=== PATIENT | female | born 1955 | race Caucasian/White ===

== ENCOUNTER 2017-10-07 14:30 | Inpatient (IN) | payer OTHER ==
[~2017-10-07] VITALS: Ht 162.6 cm; Wt 135.6 kg
[2017-10-07 14:45] VITALS: BP 135/58
[2017-10-07 15:03] LABS: APPEARANCE,URINE Clear (CLEAR); BILIRUBIN,URINE Negative (NEGATIVE); COLOR,URINE Yellow (YELLOW); GLUCOSE, URINE (UA) Negative (NEGATIVE); KETONES,URINE Negative (NEGATIVE); LEUKOCYTE ESTERASE ,URINE Negative (NEGATIVE); NITRATE,URINE Negative (NEGATIVE); OCCULT BLOOD,URINE Negative (NEGATIVE); PH,URINE 5.5 (5.0-8.0); PROTEIN,URINE Negative (NEGATIVE); UROBILINOGEN,URINE 0.2 mg/dL (0.2-1.0)
[2017-10-07] MEDS ORDERED: METF500T6 PO (15:49)
[2017-10-07] MEDS ORDERED: VENL150T3 PO (15:49)
[2017-10-07] MEDS ORDERED: ASPI-1026 PO (15:49)
[2017-10-07] MEDS ORDERED: ATEN25TA PO (15:49)
[2017-10-07] MEDS ORDERED: OMEP40CA37 PO (15:49)
[2017-10-08] VITALS (24 sets, daily range): BP systolic 102–135; BP diastolic 54–74
[2017-10-08] MEDS ORDERED: CEFAZOLIN 3GM /D5W 100ML 100 ML IV SCH (06:00)
[2017-10-08] MEDS ORDERED: SODIUM CHLORIDE 0.9% 1000ML 1,000 ML IV ONE (07:15)
[2017-10-08] MEDS ORDERED: CEFAZOLIN SODIUM 1 GM VIAL ONE (07:27)
[2017-10-08] MEDS ORDERED: BUPIVACAINE/PF 0.25% 30ML VIAL IJ ONE (07:27)
[2017-10-08] MEDS ORDERED: EPINEPHRINE 1 MG/ML AMPULE ONE (07:27)
[2017-10-08] MEDS: CEFAZOLIN SODIUM 1 GM VIAL ONE ×2 (07:31→09:00)
[2017-10-08] MEDS ORDERED: ONDANSETRON HCL MDV 20ML 2 MG/ML VIAL ONE (07:44)
[2017-10-08] MEDS ORDERED: MIDAZOLAM HCL 1 MG/ML 2ML VIAL ONE (07:45)
[2017-10-08] MEDS ORDERED: SUCCINYLCHOLINE CHLORIDE 20 MG/ML 10 ML VIAL ONE (07:45)
[2017-10-08] MEDS ORDERED: LIDOCAINE PF 2% 5ML ABBOJECT ONE (07:45)
[2017-10-08] MEDS ORDERED: FENTANYL CITRATE PF 50 MCG/1 ML 2ML VIAL ONE ×2 (07:45→10:41)
[2017-10-08] MEDS ORDERED: PROPOFOL 10 MG/ML 20ML VIAL IV ONE ×2 (07:45→09:29)
[2017-10-08] MEDS ORDERED: ROCURONIUM BROMIDE 10MG/1ML 5ML VL ONE (07:45)
[2017-10-08] MEDS ORDERED: ROPIVACAINE 0.5% 5MG/ML 30ML IJ ONE (07:52)
[2017-10-08] MEDS: TRANEXAMIC ACID 1000MG/10ML IV ONE ×2 (09:10→11:15)
[2017-10-08] MEDS ORDERED: FERROUS FUMARATE 324 MG TABLET PO PRN (10:45)
[2017-10-08] MEDS ORDERED: DiphenhydrAMINE HCL 50 MG/ML VIAL IVP PRN (10:45)
[2017-10-08] MEDS ORDERED: POTASSIUM CHLORIDE 20 MEQ ERTAB PO PRN (10:45)
[2017-10-08] MEDS ORDERED: LIDOCAINE HCL-MPF 1% 2ML VIAL IVP PRN (10:45)
[2017-10-08] MEDS ORDERED: POTASSIUM CHLORIDE 20MEQ/100ML 100 ML IV PRN (10:45)
[2017-10-08] MEDS ORDERED: ACETAMINOPHEN EXTRA STRENGTH 500 MG TABLET PO SCH (10:45)
[2017-10-08] MEDS ORDERED: OXYCODONE HCL 5 MG TAB PO PRN (10:45)
[2017-10-08] MEDS ORDERED: TRAMADOL HCL 50 MG TABLET PO PRN (10:45)
[2017-10-08] MEDS ORDERED: KETOROLAC TROMETHAMINE 15MG/ML IV PRN (10:45)
[2017-10-08] MEDS ORDERED: POTASSIUM CHLORIDE 10% ELIXIR 20 MEQ/15 ML UDCUP PO PRN (10:45)
[2017-10-08] MEDS ORDERED: CALCIUM CARBONATE 500 MG TABLET PO PRN (10:45)
[2017-10-08] MEDS ORDERED: TEMAZEPAM 15 MG CAPSULE PO PRN (10:45)
[2017-10-08] MEDS ORDERED: ONDANSETRON HCL 4 MG/2 ML VIAL IVP PRN (10:45)
[2017-10-08] MEDS ORDERED: MEPERIDINE-PF 25 MG/ML SYG ONE ×2 (11:25→11:34)
[2017-10-08] MEDS: INSULIN HUMULIN R 100 UNIT/ML 3ML SQ SCH ×3 (11:30→21:00)
[2017-10-08] MEDS: OXYCODONE HCL 5 MG TAB PO PRN ×3 (13:00→21:24)
[2017-10-08] MEDS: SODIUM CHLORIDE 0.9% 1000ML 1,000 ML IV SCH ×2 (15:37→20:35)
[2017-10-08] MEDS: CEFAZOLIN 3GM /D5W 100ML 100 ML IV SCH (16:18)
[2017-10-08] MEDS: METFORMIN HCL 500 MG TABLET PO SCH (17:20)
[2017-10-08] MEDS ORDERED: PHARMACY COMMUNICATION MISC SCH (18:00)
[2017-10-08] MEDS: FAMOTIDINE 20MG TAB 20 MG TAB PO SCH (21:19)
[2017-10-08] MEDS: CELECOXIB 200 MG CAP PO SCH (21:19)
[2017-10-08] MEDS: ASPIRIN 325 MG TABLET PO SCH (21:19)
[2017-10-08] MEDS: PREGABALIN 25 MG CAP PO SCH (21:19)
[2017-10-08] MEDS: ACETAMINOPHEN EXTRA STRENGTH 500 MG TABLET PO SCH (21:20)
[2017-10-09] MEDS: CEFAZOLIN 3GM /D5W 100ML 100 ML IV SCH (00:02)
[2017-10-09] MEDS: OXYCODONE HCL 5 MG TAB PO PRN ×3 (04:38→12:58)
[2017-10-09 04:49] LABS: HEMATOCRIT 34.4 % (36-48); MEAN CORPUSCULAR HEMOGLOBIN 30.6 pg (27.0-33.0); MEAN CORPUSCULAR HGB CONC 34.6 g/dL (32.0-36.0); MEAN CORPUSCULAR VOLUME 88.3 fL (79-99); PLATELET COUNT (AUTO) 176 K/uL (130-400); RED BLOOD CELL COUNT(AUTO) 3.89 MIL/uL (4.00-5.50); RED CELL DISTRIBUTION WIDTH 14.4 % (11.0-15.5); WHITE BLOOD COUNT (AUTO) 14.4 K/uL (4.8-10.8)
[2017-10-09 04:57] LABS: POTASSIUM 3.8 mmol/L (3.5-5.1)
[2017-10-09] MEDS: ACETAMINOPHEN EXTRA STRENGTH 500 MG TABLET PO SCH ×2 (06:19→14:24)
[2017-10-09] MEDS: SODIUM CHLORIDE 0.9% 1000ML 1,000 ML IV SCH (06:35)
[2017-10-09] MEDS: INSULIN HUMULIN R 100 UNIT/ML 3ML SQ SCH ×3 (07:30→16:11)
[2017-10-09] MEDS ORDERED: PANTOPRAZOLE SODIUM 40 MG TABLET.DR PO SCH (07:30)
[2017-10-09 08:25] VITALS: BP 110/56
[2017-10-09] MEDS ORDERED: POLYETHYLENE GLYCOL 3350 17 GM POWD.PACK PO SCH (09:00)
[2017-10-09] MEDS ORDERED: ATENOLOL 25 MG TABLET PO SCH (09:00)
[2017-10-09] MEDS ORDERED: VENLAFAXINE HCL XR 37.5 MG CAP PO SCH (09:00)
[2017-10-09] MEDS: CELECOXIB 200 MG CAP PO SCH (09:09)
[2017-10-09] MEDS: FAMOTIDINE 20MG TAB 20 MG TAB PO SCH (09:10)
[2017-10-09] MEDS: METFORMIN HCL 500 MG TABLET PO SCH ×2 (09:10→16:11)
[2017-10-09] MEDS: ASPIRIN 325 MG TABLET PO SCH (09:10)
[2017-10-09] MEDS: PREGABALIN 25 MG CAP PO SCH (09:30)
[2017-10-09 12:00] VITALS: BP 124/69
[2017-10-09 16:00] VITALS: BP 144/73
[2017-10-09] MEDS ORDERED: HYDR-309 PO (16:41)
[2017-10-11] MEDS ORDERED: BISACODYL 10 MG SUPP.RECT RC PRN (10:45)
== END 2017-10-09 19:30 | disposition home health service (06) | DRG 470 ==
LOC: EDSTATUS 14:30 → DAHIP 10-08 06:35 → 4CH 10-08 12:11 → 4BH 10-08 12:13
PROVIDERS: ADMIT Orthopaedic Surgery; ATTEND Orthopaedic Surgery
PROC: 0SRC0J9 Replacement of Right Knee Joint with Synthetic Substitute, Cemented, Open Approach (ICD-10-PCS; principal; 2017-10-08 08:45)
DX: M17.11 Unilateral primary osteoarthritis, right knee (principal); Z68.43 Body mass index [BMI] 50.0-59.9, adult; K21.9 Gastro-esophageal reflux disease without esophagitis; G89.29 Other chronic pain; J45.909 Unspecified asthma, uncomplicated; I48.91 Unspecified atrial fibrillation; Z90.49 Acquired absence of other specified parts of digestive tract; Z80.3 Family history of malignant neoplasm of breast; Z80.8 Family history of malignant neoplasm of other organs or systems; Z82.3 Family history of stroke; Z88.8 Allergy status to other drugs, medicaments and biological substances
CPT/HCPCS: 36415; 80048; 81003; 82948; 85027; 88305; 88311; A4218; J0171; J0330; J0690; J1885; J2001; J2175; J2250; J2704; J2795; J3010; J3490; J7030